=== PATIENT | male | born 1985 | race Caucasian/White ===

== ENCOUNTER → 2023-08-31 | Outpatient (REF) | payer OTHER, SELFPAY | LOC: DHSLP | PROVIDERS: ATTENDING PHYSICIAN Internal Medicine; FAMILY PHYSICIAN Emergency Medicine | DX: G47.33 Obstructive sleep apnea (adult) (pediatric) (principal) | CPT/HCPCS: 95800 ==

== ENCOUNTER 2024-02-25 10:28 | Emergency (ER) | payer OTHER, SELFPAY ==
[2024-02-25 10:28] VITALS: BP 140/82
--- NOTE | 2024-02-25 10:58 | ED.GENMED ---
History of Present Illness
General
Chief Complaint: Musculo-Skeletal Complaint
Source: patient
Time Seen by Provider: 02/25/24 10:53
History of Present Illness
History of Present Illness:
38-year-old male presenting to the emergency department for evaluation after injuring his left ankle when he jumped off a piece of playground equipment and felt his ankle EVAR and now has pain laterally and having a difficult time bearing weight.
Patient denies any previous history of injury or surgery. No other concerns at this time.
Past History
Past History
ED Past Medical History: Psychiatric
ED Past Surgical History: Other (Oral surgery)
Social History
Tobacco: Non-smoker
Alcohol: Occasional
Drug: None
Personal:
Living: with family
Review of Systems
Review of Systems
All Other Systems: ROS reviewed and negative except as documented in HPI and ROS
Phy Exam
Physical Exam
Physical Exam:
GENERAL: Alert , in no apparent distress
EYE: conjunctiva clear
Head: Normocephalic atraumatic
NECK: Supple,
ENT: mmm.
LUNGS: no acute respiratory distress
NEUROLOGICAL: Alert and oriented
SKIN: Warm and dry, skin intact.
MUSCULOSKELETAL: LLE: no obvious deformity but there is STS around the lateral malleolus. calcaneal tendon intact. no prox tib/fib ttp, no ttp base of 5th metatarsal. pain with plantar flexion and medial deviation. Easily palpable pedal and tibial
pulses.
PSYCH: Normal and appropriate interaction.
Scores
Heart Failure Risk
Heart Failure Risk Score: Not Applicable
Heart Score for Chest Pain Patients
STEMI patient?: Not applicable
Withdrawal Assessment of Alcohol
Withdrawal Assessment Completed?: Not applicable
Course
Orders/Labs/Results
Orders:
Orders
02/25/24 10:28
Ankle, left 3 view CR [CR Ankle - Left Min 3 Views ] Urgent
Comment:
Reason For Exam: rolled ankle
02/25/24 10:57
Alex Wrap Left-Treatment ONCE
Crutches-Treatment ONCE
Vital Signs
Initial and Last Documented VS:
Initial Vital Signs
Temp Pulse Resp BP Pulse Ox
97.8 F 69 16 140/82 99
02/25/24 10:28 02/25/24 10:02/25/24 10:02/25/24 10:28 02/25/24 10:28
Last Documented Vital Signs
Temp Pulse Resp BP Pulse Ox
97.8 F 69 16 140/82 99
02/25/24 10:02/25/24 10:02/25/24 10:02/25/24 10:02/25/24 10:28
MDM/Problems Addressed
Differential Diagnosis Includes:
fracture, sprain, contustion
MDM/Problems Addressed:
38-year-old male presenting to the emergency department for evaluation of left ankle injury, pain laterally, difficult time bearing weight. No other injuries sustained. X-ray ordered from triage shows no acute fracture. Will place an Alex wrap for
compression, crutches to help ambulate. Advised NSAIDs/Tylenol as needed for pain. Information for orthopedics provided. Otherwise stable for discharge home.
*Radiology
Radiology exam reviewed: preliminary read by ED provider (No acute fracture)
*Pulse Oximetry
Patient hypoxic: no
*Critical Care Note
Total Time (30-74mins, 75-104mins- exclusive of procedures): Not Applicable
ED Attending Note
-
Portions of this chart may have been created with voice recognition software.� Occasional wrong word or��sound alike� substitutions may have occurred due to the inherent limitations of voice recognition software.
Discharge Plan
Departure
Patient Disposition: Home (Routine Discharge)
Date of Disposition: 02/25/24
Time of Disposition: 10:58
Patient with high blood pressure during this ER visit?: Yes
Discharge Problem:
Sprain of ankle, left
Instructions: Sprain (DC)
Prescriptions:
No Action
citalopram 20 MG tablet
20 mg PO DAILY
buspirone 30 MG tablet
30 mg PO BID
omeprazole 20 MG capsule,delayed release(DR/EC)
20 mg PO DAILY
melatonin 5 MG tablet
5 mg PO HS
Blood Pressure Medication
1 dose PO PRN PRN (Reason: pt states takes for anxiety)
Patient Comments:
pt does not know the name of the medication
oseltamivir 75 MG capsule
75 mg PO BID Qty: 10 0RF
ibuprofen 800 MG tablet
800 mg PO Q8 Qty: 20 0RF
ondansetron 4 mg tablet,disintegrating
4 mg PO Q8H PRN (Reason: nausea and vomiting) Qty: 7 0RF
Referrals:
Vinay Mora MD [Active] - (Ortho)
Interventions
Interventions:
*Risk Screen - Suicide Last Done: 02/25/24 10:28
*General Assessment Last Done: 02/25/24 11:02
*Neglect/Abuse Screening Last Done: 02/25/24 10:28
ED- Fall Risk Assessment Last Done: 02/25/24 11:02
*ED COVID-19 Vaccine History Last Done: 02/25/24 11:01
ED-Musculoskeletal Assessment Last Done: 02/25/24 11:01
Discharge Date and Time
Print Language: [place]
--- NOTE | 2024-02-25 11:32 | EDRN ---
Reviewed discharge instructions with patient. Verbalized understanding. Patient demonstrated proper use of crutches.
[2024-02-25 11:42] VITALS: BP 128/80
== END 2024-02-25 11:44 | disposition home or self-care (01) ==
LOC: EMR 10:28
PROVIDERS: EMERGENCY PHYSICIAN Student in an Organized Health Care Education/Training Program; FAMILY PHYSICIAN Emergency Medicine
DX: S93.402A Sprain of unspecified ligament of left ankle, initial encounter (principal); X50.1XXA Overexertion from prolonged static or awkward postures, initial encounter; R03.0 Elevated blood-pressure reading, without diagnosis of hypertension
CPT/HCPCS: 99283; 73610